=== PATIENT | female | born 2000 | race Two or more races ===

== ENCOUNTER 2019-07-22 20:43 | Emergency (ER) | payer SELFPAY ==
[~2019-07-22] VITALS: Ht 165.1 cm; Wt 99.8 kg
[2019-07-22] MEDS ORDERED: ALBUTEROL SULFATE 2.5 MG/3 ML NEBU. NEB ONE (23:00)
[2019-07-22 23:32] LABS: BASO # 0.1 x10^3/uL (0.0-0.2); BASO % 1 % (0-3); EOS # 0.9 x10^3/uL (0.0-0.7); EOS % 6 % (0-3); HEMOGLOBIN 7.8 g/dL (12.0-15.5); LYMPH # 3.8 x10^3/uL (1.0-4.8); LYMPH % 23 % (24-48); MEAN CORPUSCULAR HEMOGLOBIN 19 pg (25-35); MEAN CORPUSCULAR HGB CONC 30 g/dL (31-37); MEAN CORPUSCULAR VOLUME 62 fL (79-100); MONO # 0.7 x10^3/uL (0.0-1.1); MONO % 4 % (0-9); NEUT # 11.1 x10^3/uL (1.8-7.7); NEUT % 67 % (31-73); PLATELET COUNT 446 x10^3/uL (140-400); RED BLOOD COUNT 4.19 x10^6/uL (3.50-5.40); RED CELL DISTRIBUTION WIDTH 19.4 % (11.5-14.5); WHITE BLOOD COUNT 16.7 x10^3/uL (4.0-11.0)
[2019-07-22 23:37] LABS: CALCIUM 8.9 mg/dL (8.5-10.1); CREATININE 0.8 mg/dL (0.6-1.0); GFR 90.5; POTASSIUM 3.9 mmol/L (3.5-5.1)
[2019-07-22 23:43] LABS: ALBUMIN/GLOBULIN RATIO 0.6 (1.0-1.7); TOTAL BILIRUBIN 0.3 mg/dL (0.2-1.0); TOTAL PROTEIN 7.9 g/dL (6.4-8.2)
--- NOTE | 2019-07-22 23:48 | RAD ---
CHEST PA LATERAL INDICATION: Dyspnea. COMPARISON STUDY: None. FINDINGS: Lungs: Normal lung volume. No pulmonary mass or consolidation. The tracheobronchial tree and hilar structures are normal. Pleura: No pleural effusion or pneumothorax. Heart and Mediastinum: The cardiomediastinal silhouette is normal. The great vessels of the thorax are normal. Bones and Soft Tissues: The bones and soft tissues are within normal limits. IMPRESSION: No acute cardiopulmonary process. Electronically signed by: Ede Escalera MD (07/22/2019 11:45 PM) [facility]
[2019-07-22 23:52] LABS: HYPOCHROMIA MOD; MICROCYTOSIS MOD; PLT ESTIMATE INCREASED (ADEQUATE)
[2019-07-22 23:53] LABS: OVALOCYTES OCC; STOMATOCYTES OCC
[2019-07-23] MEDS ORDERED: FERR325T14 PO (00:27)
--- NOTE | 2019-07-23 00:29 | PHYS DOC ---
Past Medical History Past Medical History: No Pertinent History Past Surgical History: No Surgical History Alcohol Use: None Drug Use: None Adult General Chief Complaint Chief Complaint: Congestion HPI HPI Patient is a 19 year old [female who presents with [congestion, shortness of breath, and feeling ill for the past 4 days. No states she has been trying to take some Robitussin and other cough medications because she felt short of breath, but had no improvement was. States she has felt a little weak over the last day or 2. Denies any dizziness, denies any nausea, vomiting, diarrhea. Denies any fever, denies any sore throat Review of Systems Review of Systems Constitutional: Denies fever or chills [] Eyes: Denies change in visual acuity, redness, or eye pain [] HENT: Does report some nasal congestion, denies sore throat[] Respiratory: Reports occasional productive cough, some shortness of breath.[] Cardiovascular: No additional information not addressed in HPI [] GI: Denies abdominal pain, nausea, vomiting, bloody stools or diarrhea [] : Denies dysuria or hematuria [] Musculoskeletal: Denies back pain or joint pain [] Integument: Denies rash or skin lesions [] Neurologic: Denies headache, focal weakness or sensory changes [] Endocrine: Denies polyuria or polydipsia [] All other systems were reviewed and found to be within normal limits, except as documented in this note. Current Medications Current Medications Current Medications Medications (Trade) Dose Ordered Sig/Dereck Start Time Stop Time Status Last Admin Dose Admin Albuterol Sulfate (Ventolin Neb Soln) 2.5 mg 1X ONCE 07/22/19 23:00 07/22/19 23:01 DC 07/22/19 23:59 2.5 MG Allergies Allergies Allergies Coded Allergies Type Severity Reaction Last Updated Verified Unable to Assess 07/22/19 No Physical Exam Physical Exam Constitutional: Well developed, well nourished, no acute distress, non-toxic appearance. [] HENT: Normocephalic, atraumatic, bilateral external ears normal, oropharynx moist, no oral exudates, nose normal. [] Eyes: PERRLA, EOMI, conjunctiva normal, no discharge. [] Neck: Normal range of motion, no tenderness, supple, no stridor. [] Cardiovascular:Heart rate regular rhythm, no murmur [] Lungs & Thorax: Bilateral breath sounds clear to auscultation minimally diminished, occasional faint wheeze heard[] Abdomen: Bowel sounds normal, soft, no tenderness, no masses, no pulsatile masses. [] Skin: Warm, dry, no erythema, no rash. [] Back: No tenderness, no CVA tenderness. [] Extremities: No tenderness, no cyanosis, no clubbing, ROM intact, no edema. [] Neurologic: Alert and oriented X 3, normal motor function, normal sensory function, no focal deficits noted. [] Psychologic: Affect normal, judgement normal, mood normal. [] Current Patient Data Vital Signs Vital Signs Date Time Temp Pulse Resp B/P (MAP) Pulse Ox O2 Delivery O2 Flow Rate FiO2 07/23/19 00:00 99 07/22/19 21:14 97.9 118 16 155/86 (109) Room Air 97.9 Lab Values Laboratory Tests Test 07/22/19 23:20 07/22/19 23:32 White Blood Count 16.7 x10^3/uL (4.0-11.0) H Red Blood Count 4.19 x10^6/uL (3.50-5.40) Hemoglobin 7.8 g/dL (12.0-15.5) L Hematocrit 26.0 % (36.0-47.0) L Mean Corpuscular Volume 62 fL (79-100) L Mean Corpuscular Hemoglobin 19 pg (25-35) L Mean Corpuscular Hemoglobin Concent 30 g/dL (31-37) L Red Cell Distribution Width 19.4 % (11.5-14.5) H Platelet Count 446 x10^3/uL (140-400) H Neutrophils (%) (Auto) 67 % (31-73) Lymphocytes (%) (Auto) 23 % (24-48) L Monocytes (%) (Auto) 4 % (0-9) Eosinophils (%) (Auto) 6 % (0-3) H Basophils (%) (Auto) 1 % (0-3) Neutrophils # (Auto) 11.1 x10^3/uL (1.8-7.7) H Lymphocytes # (Auto) 3.8 x10^3/uL (1.0-4.8) Monocytes # (Auto) 0.7 x10^3/uL (0.0-1.1) Eosinophils # (Auto) 0.9 x10^3/uL (0.0-0.7) H Basophils # (Auto) 0.1 x10^3/uL (0.0-0.2) Platelet Estimate Increased (ADEQUATE) Hypochromasia Mod Microcytosis Mod Macrocytosis Slight Ovalocytes Occ Stomatocytes Occ D-Dimer (Carey) 0.57 ug/mlFEU (0.00-0.50) H Sodium Level 141 mmol/L (136-145) Potassium Level 3.9 mmol/L (3.5-5.1) Chloride Level 105 mmol/L (98-107) Carbon Dioxide Level 24 mmol/L (21-32) Anion Gap 12 (6-14) Blood Urea Nitrogen 11 mg/dL (7-20) Creatinine 0.8 mg/dL (0.6-1.0) Estimated GFR (Cockcroft-Gault) 90.5 BUN/Creatinine Ratio 14 (6-20) Glucose Level 98 mg/dL (70-99) Calcium Level 8.9 mg/dL (8.5-10.1) Total Bilirubin 0.3 mg/dL (0.2-1.0) Aspartate Amino Transferase (AST) 23 U/L (15-37) Alanine Aminotransferase (ALT) 17 U/L (14-59) Alkaline Phosphatase 82 U/L (46-116) Total Protein 7.9 g/dL (6.4-8.2) Albumin 3.0 g/dL (3.4-5.0) L Albumin/Globulin Ratio 0.6 (1.0-1.7) L POC Urine HCG, Qualitative Hcg negative (Negative) Laboratory Tests 07/22/19 23:20 Laboratory Tests 07/22/19 23:20 EKG EKG [] Radiology/Procedures Radiology/Procedures Chest x-ray without acute changes noted, per Dr. Gann, at 2345[] Course & Med Decision Making Course & Med Decision Making Pertinent Labs and Imaging studies reviewed. (See chart for details) [Discussed lab findings, and imaging with patient. Patient reports after her breathing treatment she does feel a lot better. Discussed findings with patient, patient reports she had forgotten to mention that prior to her starting on control tablets, 2 months ago, she had a period of 6 months of constant menstrual bleeding. Reports this is why her [employer] put her on control for a couple months. States she had felt some shortness of breath at that time, she has had several episodes in the past where she is having low hemoglobin, and has received transfusions in the past. Discussed with Dr Webb, recommends Iron supplements and follow up with OBGYN, as menstrual complication likely cause of her anemia today and resulting SOA. Discussed use of iron tablets with patient, continue to follow up with [employer] and determine if they need to do additional management for her menstrual bleeding. Patient with no further questions or concerns at this time, states she feels relieved to know this was the cause of her shortness of breath today.] Dragon Disclaimer Dragon Disclaimer This electronic medical record was generated, in whole or in part, using a voice recognition dictation system. Departure Departure Impression: Primary Impression: Anemia Additional Impression: Dyspnea Disposition: 01 HOME, SELF-CARE Condition: GOOD Referrals: NO PCP (PCP) Patient Instructions: Anemia, FAQs, Iron Chewable Tablets Additional Instructions: As we discussed, take the iron tablets each day. try to get into her [employer] in the next week or so to determine if they want to do any additional testing. Your hemoglobin today was 7.8 you should have this rechecked in the next week or so. Scripts Ferrous Sulfate (FERROUS SULFATE) 325 Mg Tablet 1 TAB PO DAILY, #30 TAB 3 Refills Prov: LISA SALAZAR APRN 07/23/19 Problem Qualifiers Primary Impression: Anemia Anemia type: unspecified type Qualified Codes: D64.9 - Anemia, unspecified Additional Impression: Dyspnea Dyspnea type: shortness of breath Qualified Codes: R06.02 - Shortness of breath LISA SALAZAR APRN Jul 23, 2019 00:29
[2019-07-23 00:50] VITALS: BP 176/78
== END 2019-07-23 00:51 | disposition home or self-care (01) ==
LOC: ER 20:43
DX: R06.02 Shortness of breath (principal); D64.9 Anemia, unspecified; R05 Cough; R09.81 Nasal congestion
CPT/HCPCS: 36415; 71046; 80053; 81025; 85025; 85379; 87070; 87880; 94640; 99285; J7613; 96360